=== PATIENT | female | born 1985 | race Caucasian/White ===

== ENCOUNTER → 2017-08-14 | Outpatient (CLI) | payer OTHER | END | disposition home or self-care (01) | LOC: C.LABSPEC 17:56 | PROVIDERS: ATTEND Obstetrics & Gynecology | DX: Z34.01 Encounter for supervision of normal first pregnancy, first trimester (principal); Z3A.00 Weeks of gestation of pregnancy not specified ==

== ENCOUNTER → 2017-08-18 | Outpatient (CLI) | payer OTHER ==
[2017-08-18 10:22] LABS: BASO % 0.1 %; BASO ABS # 0.01 K/uL (0-0.2); EOS % 0.5 %; EOS ABS # 0.04 K/uL (0-0.5); HEMOGLOBIN 12.5 g/dL (12.0-16.0); IG# 0.02 K/uL (0.00-0.02); LYMPH % 26.1 %; LYMPH ABS # 2.17 K/uL (1.2-3.4); MEAN CELL VOLUME 82.6 fL (80-100); MEAN CORPUSCULAR HEMOGLOBIN 27.9 pg (25-34); MEAN CORPUSCULAR HGB CONC 33.8 g/dl (32-36); MEAN PLATELET VOLUME 10.3 fL (7.4-10.4); MONO % 6.5 %; MONO ABS # 0.54 K/uL (0.11-0.59); NEUT % 66.6 %; NEUT ABS # 5.53 K/uL (1.4-6.5); PLATELET COUNT 289 K/uL (130-400); RED CELL DISTRIBUTION WIDTH CV 12.9 % (11.5-14.5); WHITE BLOOD COUNT 8.31 K/uL (4.8-10.8)
== END | disposition home or self-care (01) ==
LOC: C.LAB1850 09:00
PROVIDERS: ATTEND Obstetrics & Gynecology
DX: Z34.01 Encounter for supervision of normal first pregnancy, first trimester (principal); S69.92XA Unspecified injury of left wrist, hand and finger(s), initial encounter; X58.XXXA Exposure to other specified factors, initial encounter

== ENCOUNTER 2023-06-09 07:35 | Inpatient (IN) ==
--- NOTE | 2023-06-09 07:42 | History & Physical Report ---
Date of Service June 09, 2023 Assessment & Plan (1) 39 weeks gestation of : (2) Elderly multigravida, currently : (3) Gestational diabetes mellitus (GDM) affecting : Plan Pt is a 37 yo at 39 4/7 WGA presenting to labor and delivery for elective induction. Blood type; O+, GBS negative, rubella immune Plan to start oxytocin and rupture membranes later if necessary. Proceed with labor and plan for vaginal delivery. Admission and Anticipated Discharge Date Admission Date: June 09, 2023 History of Present Illness Chief Complaint: Elective induction of labor Primary Care Provider: Britta Castorena MD Pt is a 37 y/o female currently at 39 4/7 WGA with an MELISSA of 06/12/2023 as determined by LMP who is here for elective induction. Her was complicated by: COVID POSITIVE 05/03/23 (SX STARTED 05/02/23) GDM w/28wk glucola *Begin monthly Growth US's hx of ectopic 03/01 AMA >35 @ delivery * weekly NSTs Today, pt states she is both nervous and excited for this delivery, as her first had spontaneous labor and she delivered shortly after coming in. She denies any issues with her first delivery that she can remember. No questions or complaints at this time as she is currently comfortable. no contractions noted just occasional pressure; + movement; no fluid loss; no bloody show, did note that she thinks she lost her mucus plug over the last few days Had regular appointments with OB. OB Labs: Blood Type O Positive 10/30/22 Antibody Screen NEGATIVE 10/30/22 Hemoglobin 12.0 g/dl (12.0-16.0) 03/19/23 Hematocrit 35.7 % (37.0-47.0) L 03/19/23 Mean Corpuscular Volume 85.2 fL (80.0-100.0) 10/30/22 Platelet Count 307 K/uL (130-400) 10/30/22 Varicella-Zoster IgG Antibody 1279.00 index 09/22/22 Rubella IgG Antibody Immune (Immune) 10/30/22 Rapid Plasma Reagin Nonreactive (Nonreactive) 10/30/22 Hepatitis B Surface Antigen NEG (NEG) 08/18/17 Hepatitis B Surface Antigen. NON-REACTIVE (NON-REACTIVE) 10/30/22 Hepatitis C Antibody (EIA) NON-REACTIVE (NON-REACTIVE) 10/30/22 HIV (1&2) Ab and P24 Ag, 4th Gener NEG (NEG) 08/18/17 HIV (1&2) Ag and Ab Confirmation NON-REACTIVE (NON-REACTIVE) 10/30/22 Glucose 1 Hour 50 gm Load 193 mg/dl (70-130) H 03/19/23 OB Optional Labs: Chlamydia trachomatis RNA Not Detected (NotDetected) 10/30/22 Neisseria gonorrhoeae RNA Not Detected (NotDetected) 10/30/22 Thyroid Stimulating Hormone (TSH) 1.966 uIu/ml (0.300-4.500) 11/27/22 Allergies Allergy/AdvReac Type Severity Reaction Status Date / Time No Known Allergies Allergy Verified 06/08/23 09:00 Home Medications Medication Instructions Recorded Confirmed Type prenat.vits,clarence,gar-jsuz-qoqhj 1 tab PO DAILY 08/09/20 06/09/23 History famotidine [Pepcid] 10 mg PO BID 03/19/23 06/09/23 History acetone (urine) test (Ketone Urine #50 ea 04/09/23 06/08/23 Rx Test strips) blood sugar diagnostic (OneTouch #150 ea 04/09/23 06/08/23 Rx Verio test strips) blood-glucose meter (OneTouch #1 ea 04/09/23 06/08/23 Rx Verio Reflect Meter) lancets 33 gauge (OneTouch Delica #150 ea 04/09/23 06/08/23 Rx Plus Lancet) omega-3 fatty acids 1,000 mg PO DAILY 06/04/23 06/09/23 History Patient History Medical History Ectopic , tubal Encounter for annual routine gynecological examination Encounter for pre-operative examination Fertility testing Gestational diabetes History of varicella Infertility, female Surgical History History of salpingectomy Post-operative state Family History Aunt Breast cancer Father Alcohol addiction Mother No problems noted. Brother Hypertension Daughter No problems noted. Denies family history of Ovarian cancer Prostate cancer Myocardial infarction Colorectal cancer Social History Smoking Status: Never smoker Second Hand Exposure: No; Do You Dip or Chew Tobacco: No; Hx Alcohol Use: No Hx Substance Use: No Preferred Language: [place] Communication Ability: Effective Visual Impairment: No Limitations Hearing Ability: Normal Housekeeper Cleaning Cooking Required: No Beliefs That Will Affect Care: None marital status: marital status details: Joshua Pate [phone] Current Living Situation: Spouse Current Living Situation Comment: , daughter, 1 dog current occupational status: employed current occupation: remote How many Children do You have: 1 How many Children do You have Comment: DAUGHTER Other Information That Helps Us Care for You: No Feels Safe at Home: Yes Safety Concerns: Feels Safe At This Time Childhood Exposure to Second-Hand Smoke: No Diet: regular caffeine: Yes during the past year weight has: remained stable Dental Care, Regularly: Yes Physical Activity Frequency: Daily Seatbelt Use: always Sunscreen Use: Yes Assistive Devices: None OB History Del. Date GA wks Lbr Lgth wt Sex Type del Anes Place Del Prov ? Comment 03/25/18 39 7lbs 11.5oz F Epidural [facility] Dr. Stephanie parekh 07/09/20 Aborted-Spontaneous 02/17/22 6 Ectopic R salpingec braydon 02/17/22 [employer] History Noncontributory. Review of Systems no fever, no chills and no sweats no dyspnea no chest pain and no palpitations no dysuria no headache(s) no changes in vision Physical Exam Physical Exam: General: Alert, oriented. No acute distress. Cardiac: Regular rate and rhythm, no murmurs, gallops, or rubs. Respiratory: Clear to auscultation bilaterally a/p, no wheezes, rales, or rhonchi. No increased work of breathing. No respiratory distress. Abdomen: Gravid, Position: vertex Pelvic: Cervical exam per Dr. Swift, pending. Lower extremities: No lower extremity edema or swelling. No deep calf pain. Ami's negative bilaterally. Supervising Physician Co-Signing Physician Notes Resident Physician Supervision Note: I interviewed and examined the patient. Discussed with Dr. Elliott and agree with findings and plan as documented in the note. Any exceptions or clarifications are listed here: with iup at 39 4/7. Presents for elective induction secondary to suspected LGA fetus. AC in 94% and efw 82%. cx /-2. efm--140s, mod variability, accesl present, no decels. toco--rare contraction. category one. plan pit induction, arom when indicated, desires epidural. Documented By: Karolina Swift MD, FACOG Resident Activity Tracking Resident Involvement: Resident Care Provided Care Provided: OB Delivery
[2023-06-09] MEDS ORDERED: OXYTOCIN 30 UNITS/NSS 30 UNITS/500 ML BAG IV PRN ×3 (09:28→15:31)
[2023-06-09] MEDS ORDERED: LACTATED RINGER'S 1,000 ML IV PRN (09:28)
[2023-06-09] MEDS ORDERED: LIDOCAINE 1% LOCAL 20 ML VIAL INFIL PRN (09:28)
[2023-06-09 10:02] LABS: Hematocrit (blood only) 34.4 % (37.0-47.0); Hemoglobin 11.5 g/dl (12.0-16.0); Mean Corpuscular Hemoglobin 27.7 pg (25.0-34.0); Mean Corpuscular Hgb Conc 33.4 g/dL (32.0-36.0); Mean Corpuscular Volume 82.9 fL (80.0-100.0); Mean Platelet Volume 10.5 fL (9.4-12.4); Platelet Count 236 K/uL (130-400); RDW Coefficient of Variation 13.5 % (11.5-14.5); Red Blood Count 4.15 M/uL (4.20-5.40)
[2023-06-09] MEDS ORDERED: fentaNYL citrate PF 100 MCG/2 ML VIAL ONE (12:24)
[2023-06-09] MEDS ORDERED: ePHEDrine sulfate 50 MG/ML AMP ONE (12:24)
[2023-06-09] MEDS ORDERED: fentANYL 2 MCG/ML BUPIVacaine 0.125%-NSS 100ML BAG ONE (12:25)
[2023-06-09] MEDS ORDERED: SODIUM CHLORIDE 0.9% PF INJ 10 ML VIAL ONE (12:25)
[2023-06-09] MEDS ORDERED: LIDOCAINE 2%/EPINEPHRINE 1:200,000 20 ML PF ONE (12:25)
[2023-06-09] MEDS ORDERED: BUPIVACAINE 0.25% PF 30 ML VIAL ONE (12:25)
[2023-06-09] MEDS ORDERED: NALOXONE HCL 0.4 MG/1 ML VIAL/CARP IV PRN (12:42)
[2023-06-09] MEDS ORDERED: fentANYL 2 MCG/ML BUPIVacaine 0.125%-NSS 100ML BAG EPI PRN (12:42)
[2023-06-09] MEDS ORDERED: LIDOCAINE 2% MPF LOCAL 5 ML VIAL EPI PRN (12:42)
[2023-06-09] MEDS ORDERED: fentaNYL citrate PF 100 MCG/2 ML VIAL EPI STA (12:42)
[2023-06-09] MEDS ORDERED: BUPIVACAINE 0.25% PF 30 ML VIAL EPI STA (12:42)
[2023-06-09] MEDS ORDERED: ePHEDrine sulfate 50 MG/ML AMP IV PRN (12:42)
[2023-06-09] MEDS ORDERED: ROPIVACAINE 0.5% PF 5 MG/ML 20 ML VIAL EPI PRN (12:42)
[2023-06-09] MEDS ORDERED: NALOXONE HCL 1 MG in SODIUM CHLORIDE 0.9% 1,000 ML IV PRN (12:42)
[2023-06-09] MEDS ORDERED: LIDOCAINE 2%/EPINEPHRINE 1:200,000 20 ML PF EPI STA (12:42)
[2023-06-09] MEDS ORDERED: diphenhydrAMINE 50 MG/ML VIAL IV PRN (12:42)
[2023-06-09] MEDS ORDERED: SODIUM CHLORIDE 0.9% PF INJ 10 ML VIAL EPI PRN (12:42)
[2023-06-09] MEDS ORDERED: fentaNYL citrate PF 100 MCG/2 ML VIAL EPI PRN (12:42)
[2023-06-09] MEDS ORDERED: SODIUM CHLORIDE 0.9% PF INJ 10 ML VIAL EPI STA (12:42)
[2023-06-09] MEDS ORDERED: BUPIVACAINE 0.25% PF 30 ML VIAL EPI PRN (12:42)
[2023-06-09] MEDS ORDERED: NALBUPHINE HCL 5 MG in SYRINGE 0 ML IV PRN (12:42)
--- NOTE | 2023-06-09 12:42 | Anesthesiology Consultation ---
Date of Service June 09, 2023 Assessment & Plan Chart Review Chart Review: Patient NOT seen in Pre Admission Testing and Acceptable Risk for Labor Epidural Consults Requested none History Height/Weight Height: 5 ft 6 in Weight: 81.647 kg Allergies Allergy/AdvReac Type Severity Reaction Status Date / Time No Known Allergies Allergy Verified 06/08/23 09:00 Medications Home Medications Medication Instructions Recorded Confirmed Last Taken prenat.vits,clarence,tzx-hcig-byfnn 1 tab PO DAILY 08/09/20 06/09/23 06/08/23 17:00 famotidine [Pepcid] 10 mg PO BID 03/19/23 06/09/23 06/08/23 21:00 acetone (urine) test (Ketone Urine #50 ea 04/09/23 06/08/23 Unknown Test strips) blood sugar diagnostic (OneTouch #150 ea 04/09/23 06/08/23 Unknown Verio test strips) blood-glucose meter (OneTouch #1 ea 04/09/23 06/08/23 Unknown Verio Reflect Meter) lancets 33 gauge (OneTouch Delica #150 ea 04/09/23 06/08/23 Unknown Plus Lancet) omega-3 fatty acids 1,000 mg PO DAILY 06/04/23 06/09/23 06/08/23 17:00 Active Medications Generic Name Dose Route Start Last Admin Trade Name Freq PRN Reason Stop Dose Admin Oxytocin 30 units in 500 mls @ 12 mls/hr 06/09/23 09:28 06/09/23 12:30 Pitocin 30 Units/Nss IV 06/11/23 09:27 0.72 units/hr .Q24H PRN 12 mls/hr Labor Induction/Augmentation Titration Protocol 0.72 UNITS/HR Lactated Ringer's 1,000 mls @ 125 mls/hr 06/09/23 09:28 06/09/23 12:25 Lr IV 06/11/23 09:27 999 mls/hr .Q8H PRN Infusion L&D Protocol Protocol Past Medical History Medical History Infertility, female Fertility testing Encounter for pre-operative examination Ectopic , tubal Encounter for annual routine gynecological examination History of varicella Gestational diabetes Past Family History Family History Aunt Breast cancer Paternal and Maternal Great Aunt Father Alcohol addiction Mother No problems noted. Brother Hypertension Daughter No problems noted. Denies family history of Ovarian cancer Prostate cancer Myocardial infarction Colorectal cancer Past Surgical History Surgical History History of salpingectomy Post-operative state Social History Smoking Status: Never smoker Do You Dip or Chew Tobacco: No Hx Alcohol Use: No Hx Substance Use: No Physical Exam Vital Signs Last Vital Signs Temp 98.1 F 06/09/23 09:57 Pulse 82 06/09/23 12:02 Resp 20 06/09/23 09:57 BP 114/65 06/09/23 12:02 Testing Laboratory Results 06/09/23 09:39
--- NOTE | 2023-06-09 14:17 | Labor Progress Brief Note ---
Date of Service June 09, 2023 Subjective Finally got comfortable with epidural. Assessment & Plan (1) Elderly multigravida, currently : (2) Encounter for induction of labor: Plan continue current management. fetus category one. anticipate . Admission and Anticipated Discharge Date Admission Date: June 09, 2023 Physical Exam Physical Exam: cx--8/100/0 arom--minimal clear toco--q2-3min efm--120s with mod variability, accesl to 160s, no decels Results & Data Vital Signs (Past 12 Hours) Vital Signs Temp Pulse Resp BP Pulse Ox 06/09/23 14:10 69 113/62 99 06/09/23 14:05 100 06/09/23 14:05 76 06/09/23 14:05 75 114/68 06/09/23 14:00 100 06/09/23 14:00 77 06/09/23 14:00 70 114/66 06/09/23 13:56 71 117/66 06/09/23 13:55 69 100 06/09/23 13:50 67 121/77 100 06/09/23 13:45 100 06/09/23 13:45 75 06/09/23 13:45 70 117/61 06/09/23 13:40 100 06/09/23 13:40 74 06/09/23 13:40 69 140/76 06/09/23 13:35 99 06/09/23 13:35 75 06/09/23 13:35 79 125/81 06/09/23 13:30 76 122/72 99 06/09/23 13:27 80 126/63 06/09/23 13:25 78 100 06/09/23 13:23 75 124/59 L 06/09/23 13:21 80 123/75 06/09/23 13:20 79 99 06/09/23 13:19 83 125/77 06/09/23 13:17 36.7 C 77 20 129/75 06/09/23 13:15 100 06/09/23 13:15 93 H 06/09/23 13:15 83 127/75 06/09/23 13:13 71 129/75 06/09/23 13:11 80 137/87 06/09/23 13:10 78 100 06/09/23 13:05 78 100 06/09/23 13:00 79 100 06/09/23 12:55 74 100 06/09/23 12:54 76 122/77 06/09/23 12:02 82 114/65 06/09/23 10:59 78 110/67 06/09/23 09:57 36.7 C 81 20 112/68 06/09/23 07:47 88 120/72 06/09/23 07:45 20 06/09/23 07:45 36.8 C 20 06/09/23 07:44 36.8 C 20 Coding Level of Care Code None Diagnoses Elderly multigravida, currently O09.529 Encounter for induction of labor Z34.90
--- NOTE | 2023-06-09 15:18 | Delivery Summary ---
Vaginal Delivery Summary Date of Service June 09, 2023 Vaginal Delivery Summary and 2nd Degree LAC Pre-operative Diagnosis: at 39 weeks suspected LGA gdm Post-operative Diagnosis: same Procedure: pitocin induction epidural arom second degree perinal laceration and repair EBL: 300cc Anesthesia: epidural Procedure: The patient presents with favorable cervix for iol for suspected lga. Started with pitocin, then received epidural. Arom at 8cm. Progressed to c/c/+2. The patient pushed for 15min to deliver a viable male in estela position. A nuchal cord x 1 was reduced. The rest of the was then delivered without difficulty. The baby was vigorous. The nose and mouth were bulb suctioned on the maternal abdomen. Cord was clamped and cut at one minute of life. Cord blood obtained. Placenta delivered spontaneous, intact with a three vessel cord. Cervix/sulci/rectum were intact. A second degree perineal laceration was repaired in the normal standard fashion. Hemostasis obtained with dilute pitocin and fundal massage. Apgars were 8/9. Mother and baby doing well at the end of the delivery. MNP Vaginal Delivery Charge Delivery Type Details: and 2nd Degree LAC
[2023-06-09] MEDS ORDERED: oxyCODONE/ACETAMINOPHEN 5mg/325mg TAB PO PRN (15:31)
[2023-06-09] MEDS ORDERED: ACETAMINOPHEN 325 MG TAB PO PRN (15:31)
[2023-06-09] MEDS ORDERED: HYDROCORTISONE ACETATE 25 MG SUPP PR PRN (15:31)
[2023-06-09] MEDS ORDERED: BENZOCAINE 20% SPRY 85 APPLN/85 GM CAN EXT PRN (15:31)
[2023-06-09] MEDS ORDERED: DIPHTHER/TETAN/PERTUS Vaccine (Tdap, Adol/Adult) 0.5mL IM ONE (15:31)
--- NOTE | 2023-06-09 18:43 | Anesthesia Procedure Note ---
Date of Service June 09, 2023 Anesthesia Post Epidural Note Vital Signs Vital Signs: Temp Pulse Resp BP Pulse Ox O2 Del Method 97.7 F 89 18 122/80 98 Room Air 06/09/23 18:15 06/09/23 18:15 06/09/23 18:15 06/09/23 18:15 06/09/23 18:15 06/09/23 18:15 Pain Intensity Bilateral Anterior Abdomen: Pain Intensity: 0 Notes Mental Status: alert / awake / arousable and participated in evaluation Nausea / Vomiting: adequately controlled Pain: adequately controlled Airway Patency, RR, SpO2: stable & adequate BP & HR: stable & adequate Hydration State: stable & adequate Neuraxial Anesthesia: was administered and sensory block is resolving Anesthetic Complications: no major complications apparent and Pt Satisfied with anesthetic care Epidural: Removed without complications and With tip intact
[2023-06-09] MEDS: IBUPROFEN 600 MG TAB PO PRN (20:57)
[2023-06-09] MEDS: DOCUSATE SODIUM 100 MG CAP PO SCH (20:57)
[2023-06-09] MEDS: FAMOTIDINE 10 MG TABLET PO SCH (20:57)
[2023-06-10] MEDS: IBUPROFEN 600 MG TAB PO PRN ×3 (01:47→13:40)
--- NOTE | 2023-06-10 05:34 | Obstetrical Progress Note ---
Date of Service <Lidya Schmidt Kayla - Last Filed: 06/10/23 05:40> June 10, 2023 Assessment & Plan <Lidya Schmidt Arielleiglesia - Last Filed: 06/10/23 05:40> (1) care following vaginal delivery: (2) Gestational diabetes mellitus (GDM) affecting : Plan Feels well today. Eating well, voiding well, ambulating well. Pain well controlled with motrin prn. Routine care; OOB, ambulation, continue regular diet. Anticipate discharge 24-48 hours after , today or tomorrow. After discharge will have 6 week follow-up with Dr. Swift. <Karolina Swift MD, FACOG - Last Filed: 06/10/23 07:07> (1) care following vaginal delivery: (2) Gestational diabetes mellitus (GDM) affecting : Subjective <Lidya Schmidt Kayla - Last Filed: 06/10/23 05:40> Pt is a 37 y/o female who is PPD#1 following at 39 weeks. Today, pt states that she is feeling pretty good. She states she has been up moving around since the delivery, has voided without discomfort, and is tolerating oral intake without N/V. She states her lochia is persistent but has improved some since yesterday. Her pain has been mild and well controlled with motrin. She is breast feeding and states it has been going pretty well. No questions or complaints at this time, states that she would like to go home today if possible. Constitutional: no fever, no chills or no sweats Respiratory: no dyspnea Cardiovascular: no chest pain or no palpitations Genitourinary (female): no dysuria Neurologic: no headache(s) no changes in vision Physical Exam <Lidya Schmidt Kayla - Last Filed: 06/10/23 05:40> General: Alert, oriented. No acute distress. Cardiac: Regular rate and rhythm, no murmurs, rubs, or gallops. Respiratory: Clear to auscultation bilaterally, no wheezes/rales/rhonchi. No increased work of breathing. Symmetrical chest rise. No respiratory distress. Abdomen: Soft, nontender, nondistended. Bowel sounds present. Uterus: Uterine fundus firm, palpable just below the umbilicus. Lower extremities: No lower extremity edema or swelling. No deep calf pain. Results & Data <Lidya Garza DO - Last Filed: 06/10/23 05:40> Vital Signs (Past 12 Hours) Vital Signs Temp Pulse Pulse Resp BP BP Pulse Ox 06/10/23 03:30 36.5 C 73 16 116/75 98 06/10/23 00:15 36.5 C 68 16 108/70 97 06/09/23 21:00 36.4 C L 81 18 133/85 97 06/09/23 18:15 36.5 C 89 18 122/80 98 06/09/23 17:34 92 H 06/09/23 17:34 127/58 L O2 Del Method 06/10/23 03:30 Room Air 06/10/23 00:15 Room Air 06/09/23 21:00 Room Air 06/09/23 18:15 Room Air 06/09/23 17:34 06/09/23 17:34 Supervising Physician <Karolina Swift MD, FACOG - Last Filed: 06/10/23 07:07> Co-Signing Physician Notes Resident Physician Supervision Note: I interviewed and examined the patient. Discussed with Dr. Dr. Garza and agree with findings and plan as documented in the note. Any exceptions or clarifications are listed here: Doing well. Plan d/c. Instructions reviewed. Documented By: Karolina Swift MD, FACOG Resident Activity Tracking <Lidya Garza DO - Last Filed: 06/10/23 05:40> Resident Involvement: Resident Care Provided Care Provided: OB Delivery
--- NOTE | 2023-06-10 06:27 | Obstetrical Progress Note ---
Date of Service <Jenni Driver - Last Filed: 06/10/23 07:25> June 10, 2023 Assessment & Plan <Jenni Driver - Last Filed: 06/10/23 07:25> (1) care following vaginal delivery: Patient is a 37 y/o female who is PPD#1 following induction of labor and with epidural at 39 4/7 weeks. Blood type; O+, GBS negative, rubella immune Overall, patient feels well today. She is OOB, ambulating, urinating, and eating well. is going well. Her cramping pain is controlled with mortrine. Plan is to continue routine care and goals for her are to continue ambulating, voiding, , and regular intake. Anticipate discharge 24-48 hours after , likely today pm. After discharge will have a 6 week follow-up with Dr. Swift. <Karolina Swift MD, FACOG - Last Filed: 06/10/23 07:30> (1) care following vaginal delivery: Subjective <Jenni Driver - Last Filed: 06/10/23 07:25> Patient is a 37 y/o female who is PPD#1 following induction of labor and with epidural at 39 4/7 weeks. Pt states that she is overall feeling well this morning. She feels some cramping with a pain level of about 3/10, but mentions that this is mostly alleviated by the mortrine. She is not concerned about the cramping and cannot recall having this symptom last . Patient states that she has been ambulating, urinating, and tolerating intake appropriately. Although she is able to pass gas, she has not had a bowel movement since delivery. She is and had some difficulty with the baby latching yesterday, but notes that this has been getting much better today. Patient has some post- bleeding or lochia that is improving. She has no questions or complaints at this time. Constitutional: no fever, no chills or no sweats Respiratory: no dyspnea Cardiovascular: no chest pain or no palpitations Breast: no breast pain Genitourinary (female): no dysuria Neurologic: no headache(s) no changes in vision, no headaches Physical Exam <Jenni Driver - Last Filed: 06/10/23 07:25> General: Alert, oriented. No acute distress. Cardiac: Regular rate and rhythm, no murmurs, rubs, or gallops. Respiratory: Clear to auscultation bilaterally, no wheezes/rales/rhonchi. No increased work of breathing. Symmetrical chest rise. No respiratory distress. Abdomen: Soft, nontender, nondistended. Bowel sounds present. Uterus: Uterine fundus firm and palpable at umbilicus. Lower extremities: No lower extremity edema or swelling. No deep calf pain. Results & Data <Jenni Driver - Last Filed: 06/10/23 07:25> Vital Signs (Past 12 Hours) Vital Signs Temp Pulse Resp BP Pulse Ox O2 Del Method 06/10/23 03:30 36.5 C 73 16 116/75 98 Room Air 06/10/23 00:15 36.5 C 68 16 108/70 97 Room Air 06/09/23 21:00 36.4 C L 81 18 133/85 97 Room Air Laboratory Results Patient's Hgb was slightly lower at 11.5 on 06/09/2023. Supervising Physician <Karolina Swift MD, FACOG - Last Filed: 06/10/23 07:30> Co-Signing Physician Notes patient seen with student and resident. please see resident note.
[2023-06-10] MEDS: DOCUSATE SODIUM 100 MG CAP PO SCH (07:29)
[2023-06-10] MEDS: FAMOTIDINE 10 MG TABLET PO SCH (07:30)
[2023-06-10 07:46] LABS: Hematocrit (blood only) 32.5 % (37.0-47.0); Mean Corpuscular Hemoglobin 28.1 pg (25.0-34.0); Mean Corpuscular Hgb Conc 33.8 g/dL (32.0-36.0); Mean Corpuscular Volume 83.1 fL (80.0-100.0); Mean Platelet Volume 10.4 fL (9.4-12.4); Platelet Count 222 K/uL (130-400); RDW Coefficient of Variation 13.7 % (11.5-14.5); Red Blood Count 3.91 M/uL (4.20-5.40); White Blood Count 12.23 K/ul (4.8-10.8)
[2023-06-10] MEDS ORDERED: PRENATAL VITAMIN 1 TAB PO SCH (08:00)
== END 2023-06-10 16:40 | disposition home or self-care (01) | DRG 807 ==
LOC: 4S1 07:35 → 4E2 18:13